=== PATIENT | female | born 1955 | race Caucasian/White ===

== ENCOUNTER → 2024-04-12 09:43 | Outpatient (REF) | payer MEDICARE, BC, SELFPAY | LOC: RAD 09:43 | PROVIDERS: ATTENDING PHYSICIAN Family Medicine | DX: M54.41 Lumbago with sciatica, right side (principal); M54.42 Lumbago with sciatica, left side | CPT/HCPCS: 72110; 73521 ==

== ENCOUNTER → 2025-04-18 15:24 | Outpatient (REF) | payer MEDICARE, BC, SELFPAY | LOC: WDC 15:24 | PROVIDERS: ATTENDING PHYSICIAN Family Medicine | DX: Z12.31 Encounter for screening mammogram for malignant neoplasm of breast (principal) | CPT/HCPCS: 77063; 77067 ==

== ENCOUNTER → 2025-09-06 10:36 | Outpatient (REF) | payer MEDICARE, BC, SELFPAY | LOC: RAD 10:36 | PROVIDERS: ATTENDING PHYSICIAN Family Medicine | DX: M54.6 Pain in thoracic spine (principal) | CPT/HCPCS: 72074 ==